=== PATIENT | male | born 1975 | race Caucasian/White ===

== ENCOUNTER 2023-04-27 18:07 | Observation (INO) | payer BC ==
[2023-04-27] MEDS ORDERED: Morphine 4 MG/ML VIAL ONE (18:26)
[2023-04-27] MEDS ORDERED: Ondansetron PF 4 MG/2 ML Vial ONE (18:26)
[2023-04-27 18:41] LABS: #Basophils 0.1 10x3/uL (0.0-0.2); #Eosinphils 0.3 10x3/uL (0.0-0.5); #Monocytes 0.6 10x3/uL (0.0-1.1); #Neutrophils 5.8 10x3/uL (1.5-8.4); %Basophils 0.9 % (0.0-2.0); %Eosinophils 2.8 % (0.0-6.0); %Lymphocytes 23.2 % (18.0-47.0); %Monocytes 7.1 % (0.0-10.0); %Neutrophils 65.1 % (40.0-75.0); Hematocrit 41.3 % (38.8-50.0); Hemoglobin 13.8 g/dL (13.5-17.5); Mean Corpuscular HGB CONC 33.4 g/dL (32.0-36.0); Mean Corpuscular Volume 83.8 fl (81.2-95.1); Mean Platelet Volume 9.7 fl (7.4-10.4); Platelet Count 336 10x3/uL (150-450); RBC Distribution Width 13.6 % (11.5-14.5); Red Blood Cell (RBC) Count 4.93 10x6/uL (4.32-5.72); White Blood Cell (WBC) Count 8.9 10x3/uL (3.5-10.5)
[2023-04-27 18:50] LABS: INR-International Normal Ratio 0.9; PTT 27.3 sec (22.0-33.0); Prothrombin Time 10.1 sec (9.5-12.1)
[2023-04-27 18:53] LABS: ALT (SGPT) 34 U/L (8-55); AST (SGOT) 24 U/L (5-34); Albumin 4.6 g/dL (3.5-5.0); Alkaline Phosphatase 77 U/L (40-110); Anion Gap 17 mmol/L (10-20); BUN (Urea Nitrogen) 22 mg/dL (8.9-20.6); Bilirubin, Total 0.3 mg/dL (0.2-1.2); Calc. Creatinine Clearance 0 mL/min (70-130); Calcium 9.8 mg/dL (7.8-10.44); Carbon Dioxide 21 mmol/L (22-29); Chloride 101 mmol/L (98-107); Estimated GFR 98; Glucose 158 mg/dL (70-105); Lipase 58 U/L (8-78); Magnesium 1.9 mg/dL (1.6-2.6); Potassium 3.8 mmol/L (3.5-5.1); Protein, Total 7.6 g/dL (6.0-8.3); Sodium 135 mmol/L (136-145)
[2023-04-27 18:57] LABS: Troponin I Less than 0.010 ng/mL (< 0.028)
[2023-04-27] MEDS ORDERED: Aspirin Chewable 81 MG TAB ONE (20:07)
[2023-04-27 20:17] LABS: Bilirubin Neg (Negative); Blood, Urine 150 (Negative); Glucose, Urine (Dipstick) >=1000 mg/dL (Negative); Ketone, Urine Negative (Negative); Leukocyte Negative (Negative); Nitrite Negative (Negative); Protein, Urine (Dipstick) 500 mg/dl (Neg-Trace); Urobilinogen Normal mg/dL (Less than 2); pH, Urine 6.5 (5.0-9.0)
[2023-04-27 20:25] LABS: Amphetamine Not Detected (NotDetected); Barbiturates Screen Not Detected (NotDetected); Benzodiazepine Screen Detected (NotDetected); Cocaine Metabolite Screen Not Detected (NotDetected); Methadone Not Detected (NotDetected); Methamphetamine Not Detected (NotDetected); Opiate Screen Detected (NotDetected); Oxycodone Screen Not Detected (NotDetected); Phencyclidine (PCP) Not Detected (NotDetected); THC/Cannabinoid Screen Not Detected (NotDetected); Tricyclic Screen Not Detected (NotDetected)
[2023-04-27 20:32] LABS: Clarity Clear (Clear)
[2023-04-27 20:34] LABS: CAUTI Indications for Culture Alt mental st,lethar; Squamous Epithelial 0-3 HPF (0-3); WBC/HPF 0-3 HPF (0-3)
[2023-04-27 20:35] LABS: Bacteria/HPF Rare-Few HPF (None Seen); Mucous/LPF Rare LPF (<2+)
[2023-04-27 20:36] LABS: Urine Culture Reflex No No
[2023-04-27 20:39] LABS: Acetaminophen Less than 10 mcg/mL (10.0-30.0); Alcohol Less than 10.0 mg/dL (Less than 10); Salicylate Less than 8.0 mg/dL (15.0-30.0)
[2023-04-27] MEDS ORDERED: Acetaminophen 325 MG TAB PO PRN (21:14)
[2023-04-27] MEDS ORDERED: INFANRIX 0.5 ML (DTaP) SYRINGE (PEDI) IM ONE (21:18)
[2023-04-27] MEDS ORDERED: TETANUS, DIPHTHERIA TOX,ADULT (TDVAX) 0.5 ML VIAL IM ONE (21:28)
[2023-04-27 21:34] VITALS: BMI 33.9
[2023-04-27] MEDS ORDERED: Glucagon 1 MG/ML KIT IM PRN (21:40)
[2023-04-27] MEDS ORDERED: Dextrose 5% in Water 1,000 ML IV PRN (21:40)
[2023-04-27] MEDS ORDERED: Dextrose 50% Abboject 50 ML SYRINGE SLOW IVP PRN (21:40)
[2023-04-27] MEDS: HumaLOG 300 UNITS/3 ML VIAL SC PRN (22:25)
[2023-04-27 22:26] LABS: Magnesium 1.8 mg/dL (1.6-2.6)
[2023-04-27] MEDS ORDERED: Carvedilol 25 MG TAB PO SCH (22:30)
[2023-04-27] MEDS ORDERED: Triple Antibiotic Oint 1 GM Packet TOP SCH (22:30)
[2023-04-27 22:33] LABS: Troponin I Less than 0.010 ng/mL (< 0.028)
[2023-04-28] MEDS ORDERED: HYDROcodone/Acetaminophen 5/325 mg Tablet PO PRN (00:45)
[2023-04-28] MEDS: Morphine 4 MG/ML VIAL SLOW IVP PRN ×3 (01:06→11:55)
[2023-04-28 01:30] LABS: Troponin I Less than 0.010 ng/mL (< 0.028)
[2023-04-28 05:29] LABS: ALT (SGPT) 32 U/L (8-55); AST (SGOT) 23 U/L (5-34); Alkaline Phosphatase 65 U/L (40-110); Anion Gap 14 mmol/L (10-20); BUN (Urea Nitrogen) 19 mg/dL (8.9-20.6); Bilirubin, Total 0.3 mg/dL (0.2-1.2); Calc. Creatinine Clearance 159 mL/min (70-130); Calcium 8.8 mg/dL (7.8-10.44); Carbon Dioxide 23 mmol/L (22-29); Chloride 101 mmol/L (98-107); Estimated GFR 103; Globulin 2.7 g/dL (2.4-3.5); Glucose 259 mg/dL (70-105); Potassium 3.9 mmol/L (3.5-5.1); Protein, Total 6.7 g/dL (6.0-8.3); Sodium 134 mmol/L (136-145)
[2023-04-28 05:50] LABS: Cholesterol 217 mg/dl (< 200 Desired)
[2023-04-28 06:41] LABS: HDL Cholesterol 27 mg/dL (>60 Neg Risk)
[2023-04-28 06:44] LABS: Triglycerides 975 mg/dL (Less than 150)
[2023-04-28] MEDS: HumaLOG 300 UNITS/3 ML VIAL SC PRN ×2 (06:45→11:55)
[2023-04-28] MEDS ORDERED: Carvedilol 25 MG TAB PO SCH (07:30)
[2023-04-28] MEDS ORDERED: Losartan Potassium 50 MG TAB PO SCH (09:00)
[2023-04-28] MEDS ORDERED: Triple Antibiotic Oint 1 GM Packet TOP SCH (09:00)
[2023-04-28] MEDS ORDERED: Aspirin 81 mg Enteric Coated Tablet PO SCH (09:00)
[2023-04-28] MEDS ORDERED: Rosuvastatin 20 MG TAB PO SCH (09:00)
[2023-04-28] MEDS ORDERED: Amlodipine 10 MG TAB PO SCH (09:00)
[2023-04-28] MEDS ORDERED: ALPRAZolam 1 MG TAB PO SCH (09:00)
[2023-04-28] MEDS ORDERED: DULoxetine 30 MG CAP PO SCH ×2 (09:00)
[2023-04-28] MEDS ORDERED: Multivit, Therapeutic 1 TAB PO SCH (09:00)
[2023-04-28] MEDS ORDERED: Fenofibrate Nanocrystallized 145 MG TAB PO SCH (09:00)
[2023-04-28] MEDS ORDERED: Hydrochlorothiazide 25 MG TAB PO SCH (09:00)
[2023-04-28 12:35] VITALS: BP 120/74; TEMP 97.5
[2023-04-28] MEDS ORDERED: hydrOXYzine 25 MG TAB PO SCH (21:00)
[2023-04-29] MEDS ORDERED: Atorvastatin Calcium 40 MG TAB PO SCH (09:00)
== END 2023-04-28 15:23 | disposition home or self-care (01) ==
LOC: CSHERS 18:07 → CSHTELE 21:15
PROVIDERS: ADMIT Family Medicine; ATTEND Physician Assistant Medical
DX: R55 Syncope and collapse (principal); E11.42 Type 2 diabetes mellitus with diabetic polyneuropathy; E78.1 Pure hyperglyceridemia; I10 Essential (primary) hypertension; Z88.1 Allergy status to other antibiotic agents; Z91.041 Radiographic dye allergy status; Z91.013 Allergy to seafood; Z79.4 Long term (current) use of insulin; Z79.82 Long term (current) use of aspirin; Z79.899 Other long term (current) drug therapy; V43.52XA Car driver injured in collision with other type car in traffic accident, initial encounter
CPT/HCPCS: 36415; 36416; 70450; 71045; 72125; 80053; 80061; 80306; 80307; 81001; 83690; 83735; 84484; 85025; 85610; 85730; 90714; 93005; 93010; 96361; 96372; 96374; 96375; 96376; G0378; J1650; J1815; J2270; J2405